=== PATIENT | female | born 1985 | race American Indian/Alaskan Native ===

== ENCOUNTER 2020-08-17 01:49 | Outpatient (CLI) | payer OTHER ==
[2020-08-17 02:15] VITALS: BP 118/71
== END 2020-08-17 03:19 | disposition home or self-care (01) ==
LOC: TRG 01:49 → APU 01:58 → TRG 03:19
PROVIDERS: ATTEND Obstetrics & Gynecology
DX: O09.893 Supervision of other high risk pregnancies, third trimester (principal); Z3A.40 40 weeks gestation of pregnancy
CPT/HCPCS: 59025

== ENCOUNTER 2020-08-18 02:48 | Inpatient (IN) | payer OTHER ==
--- NOTE | 2020-08-18 03:24 | History and Physical Report ---
History of Present Illness Date of examination: 08/18/20 History of present illness: Patient presents presents to labor and delivery with complaints of regular contractions. Her initial exam by triage nurse patient cervix 6 cm 90% -3. Patient's care complicated by body mass index greater than 40. Menstrual History Regularity: regular Menses every: 26-28 days Duration: 7 LMP: 11/07/2019 LMP reliability: definite LMP character: normal test type: urine test Planned ? no EDC Calculations LMP: 08/13/2020 EDC Confirmation: 08/13/2020 Past History : 2 Term Births: 0 Premature Births: 0 Living Children: 0 Para: 0 Mult. Births: 0 Prev : 0 Prev. attempt? 0 Aborta: 1 Elect. Ab: 1 Spont. Ab: 0 Ectopics: 0 # 1 Delivery date: 05/2019 Delivery type: EAB Past Medical History: Negative Past Medical History Past Surgical History: negative Past Medical History Anesthesia Complications: negative Anemia: negative Autoimmune Disorder: negative Bleeding Disorder: negative Blood Transfusions: negative Breast Disease: negative Diabetes: negative Heart Disease: negative Hypertension: negative Hepatitis/Liver Disease: negative Kidney Disease/UTI: negative Neurologic/Epilepsy/Migraines: negative Phlebitis/Varicosities: negative Psychiatric: negative Pulmonary Disease/Asthma: negative Thyroid Disease: negative Hospitalizations: negative Surgery (Non-heel cutter): negative Abnormal PAP: positive, >10 years ago Social Hx: Works at gym no ETOH/Drugs/Smoking no pets Infection History Hx of STD: HSV HIV Risk Eval: low risk Hepatitis B Risk Eval: low risk Personal hx. of genital herpes: yes Varicella/Chicken Pox Status: Immunized Genetic History ADVANCED MATERNAL AGE Congenital Heart Defect: Mom: no Dad: no Latosha Disease: Mom: no Dad: no Thalassemia Mom: no Dad: no Neural Tube Defect Mom: no Dad: no Down's Syndrome Mom: no Dad: no Placido-Sachs Mom: no Dad: no Sickle Cell Disease/Trait Mom: yes Dad: no Comments: sister + SCT Hemophilia Mom: no Dad: no Muscular Dystrophy Mom: no Dad: no Cystic Fibrosis Mom: no Dad: no Nicole Chorea Mom: no Dad: no Mental Retardation Mom: no Dad: no Fragile X Mom: no Dad: no Other Genetic/Chromosomal Disorder Mom: no Dad: no Child w/other defect Mom: no Dad: no Enviromental Exposures Xray Exposure: no Medication, drug, or alcohol use since LMP: no Chemical/Other Exposure: no Exposure to Cat Liter: no Hx of Parvovirus (Fifth Disease): no Occupational Exposure to Children: none Current Allergies (reviewed today): No known allergies Past History Past Medical History: other (See HPI for details) 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, other (See HPI for details) Family/Genetic History: other (See HPI for details) Social history: full code, other (See HPI for details) - Obstetrical History Expected Date of Delivery: 08/13/20 Actual Gestation: 40 Week(s) 5 Day(s) : 2 Para: 0 Hx # Term Pregnancies: 0 Number of Pregnancies: 0 Spontaneous Abortions: 0 Induced : 1 Number of Living Children: 0 Medications and Allergies Allergies Allergy/AdvReac Type Severity Reaction Status Date / Time No Known Allergies Allergy Unverified 08/17/20 02:25 Home Medications Medication Instructions Recorded Confirmed Last Taken Type No Known Home Medications [No 08/18/20 08/18/20 Unknown History Reported Home Medications] - Vital Signs Vital signs: Vital Signs Pulse Pulse Ox 119 H 99 08/18/20 02:55 08/18/20 02:55 Temp Pulse Resp BP Pulse Ox 98.2 F 115 H 18 120/58 99 08/18/20 02:59 08/18/20 03:20 08/18/20 02:59 08/18/20 03:00 08/18/20 03:20 - Physical Exam Breasts: Positive: deferred Cardiovascular: Regular rate Lungs: Positive: Normal air movement Abdomen: Positive: normal appearance, soft Genitourinary (Female): Positive: normal external genitalia. Negative: perineal/vulvar lesions Cervix: Positive: other (Per RN) Anus/Rectum: Positive: normal perianal skin - Obstetrical FHR: category 2 Results Result Diagrams: 08/18/20 03:55 All other labs normal. Assessment and Plan - Patient Problems (1) Active labor at term Current Visit: Yes Status: Acute Plan to address problem: We will admit to labor and delivery and follow labor protocol. (2) Morbid obesity Current Visit: Yes Status: Acute (3) Genital HSV Current Visit: Yes Status: Acute Qualifiers: Herpes simplex infection site: unspecified Qualified Code(s): A60.00 - Herpesviral infection of urogenital system, unspecified Plan to address problem: No lesions on exam
[2020-08-18] MEDS ORDERED: ACETAMINOPHEN 325 MG TAB PO PRN ×2 (03:26→17:40)
[2020-08-18] MEDS ORDERED: ePHEDrine SULFATE 50 MG/1 ML INJ IV PRN ×2 (03:26→05:21)
[2020-08-18] MEDS ORDERED: PROMETHAZINE 25 MG TAB PO PRN ×2 (03:26→17:40)
[2020-08-18] MEDS ORDERED: BUTORPHANOL 2 MG/1 ML INJ IV PRN (03:26)
[2020-08-18] MEDS ORDERED: TERBUTALINE 1 MG/1 ML INJ SUB-Q PRN (03:26)
[2020-08-18] MEDS ORDERED: LIDOCAINE (2%) 20 MG/1 ML VIAL 20 ML MDV INFILTRATI ONE (03:26)
[2020-08-18] MEDS ORDERED: OXYTOCIN DRIP 30 UNITS/500 ML BAG IV SCH (04:00)
[2020-08-18] MEDS: LACTATED RINGERS 1,000 ML IV SCH ×2 (04:09→06:07)
[2020-08-18 04:14] LABS: Hematocrit 37.8 % (30.3-42.9); Hemoglobin 13.7 gm/dl (10.1-14.3); Mean Corpuscular HGB Conc 36 % (30-34); Mean Corpuscular Volume 92 fl (79-97); Platelet Count 192 K/mm3 (140-440); Red Blood Count 4.09 M/mm3 (3.65-5.03); Red Cell Distribution Width 15.8 % (13.2-15.2)
[2020-08-18] MEDS ORDERED: NALOXONE 2 MG/2 ML INJ IV PRN (05:21)
--- NOTE | 2020-08-18 05:21 | Anesthesia Consultation ---
Anesthesia Consult and Med Hx Date of service: 08/18/20 - Airway Anesthetic Teeth Evaluation: Good ROM Head & Neck: Adequate Mental/Hyoid Distance: Adequate Mallampati Class: Class II Intubation Access Assessment: Probably Good - Pulmonary Exam CTA: Yes - Cardiac Exam Cardiac Exam: RRR - Pre-Operative Health Status ASA Pre-Surgery Classification: ASA3 Proposed Anesthetic Plan: Epidural - Pulmonary Hx Asthma: No COPD: No Hx Pneumonia: No - Cardiovascular System Hx Hypertension: No - Central Nervous System Hx Seizures: No Hx Psychiatric Problems: No - Endocrine Hx End Stage Renal Disease: No Hx Hypothyroidism: No - Hematic Hx Anemia: No Hx Sickle Cell Disease: No - Other Systems Hx Alcohol Use: Yes (1-2 times per week) Hx Obesity: Yes
--- NOTE | 2020-08-18 05:22 | Progress Note ---
Labor Epidural - Labor Epidural Start Time: 05:05 Stop Time: 05:21 Performed by:: GEOFFREY BUCKLEY Procedure: Patient is requesting epidural for labor pain. H&P, and labs reviewed. Procedure explained, questions answered, consent obtained. Patient in sitting position with blood pressure cuff and pulse ox on and working. Timeout performed immediately before start of procedure. Sterile chlorahexadine 0.5% prep/drape. 3 mL 1% lidocaine skin wheal at L3-L[4]. 18-gauge Tuohy epidural needle advanced to [id number] with saline at 9 cm. Epidural dexmedetomidine [30] mcg administered. Epidural catheter advanced to 15 cm, negative aspiration for blood and csf, negative test dose 3 ml 1.5% lidocaine with epinephrine. Sterile steri-strips and tegaderm applied, followed by tape reinforcement. Patient tolerated procedure well. Julissa MCDUFFIE
[2020-08-18] MEDS: fentaNYL-BUPIV 2 MCG/ML-0.125% 200 MCG/100 ML BAG EPIDURAL SCH ×2 (06:03→13:29)
--- NOTE | 2020-08-18 06:39 | Event Note ---
Date: 08/18/20 Patient now with epidural in place. With spontaneous rupture membranes with meconium fluid. Cervix is now 8 cm complete and -3. Category 2 tracing. We will continue to monitor closely with anticipated vaginal delivery soon. scalp electrode not placed at present due to history of HSV.
--- NOTE | 2020-08-18 08:27 | Progress Note ---
Assessment and Plan A: 35 y.o. @ 40.5 wks, active labor. Cervical exam: / per RN. P: Increase Pitocin per protocol. Anticipate . Subjective - Subjective Date of service: 08/18/20 Principal diagnosis: IUP @ 40.5 wks, active labor Objective - Vital Signs Vital Signs: Vital Signs - 12hr 08/18/20 08/18/20 08/18/20 02:55 02:59 03:00 Temperature 98.2 F Pulse Rate 119 H 107 H 103 H Respiratory 18 Rate Blood Pressure 120/58 Blood Pressure 120/58 [Right] O2 Sat by Pulse 99 97 96 Oximetry 08/18/20 08/18/20 08/18/20 03:05 03:10 03:15 Temperature Pulse Rate 116 H 102 H 104 H Respiratory Rate Blood Pressure Blood Pressure [Right] O2 Sat by Pulse 98 99 99 Oximetry 08/18/20 08/18/20 08/18/20 03:17 03:20 03:38 Temperature Pulse Rate 103 H 115 H 99 H Respiratory Rate Blood Pressure Blood Pressure [Right] O2 Sat by Pulse 92 99 96 Oximetry 08/18/20 08/18/20 08/18/20 03:43 03:48 03:53 Temperature Pulse Rate 104 H 109 H 98 H Respiratory Rate Blood Pressure Blood Pressure [Right] O2 Sat by Pulse 99 98 99 Oximetry 08/18/20 08/18/20 08/18/20 03:58 04:03 04:08 Temperature Pulse Rate 101 H 99 H 77 Respiratory Rate Blood Pressure Blood Pressure [Right] O2 Sat by Pulse 98 99 97 Oximetry 08/18/20 08/18/20 08/18/20 04:11 04:13 04:17 Temperature Pulse Rate 113 H 95 H Respiratory 18 Rate Blood Pressure Blood Pressure [Right] O2 Sat by Pulse 99 94 Oximetry 08/18/20 08/18/20 08/18/20 04:18 04:23 04:28 Temperature Pulse Rate 104 H 90 100 H Respiratory Rate Blood Pressure Blood Pressure [Right] O2 Sat by Pulse 99 83 L 94 Oximetry 08/18/20 08/18/20 08/18/20 04:33 04:34 04:38 Temperature Pulse Rate 109 H 98 H 101 H Respiratory Rate Blood Pressure Blood Pressure [Right] O2 Sat by Pulse 98 90 90 Oximetry 03/11/0308/18/20 08/18/20 04:40 04:43 04:46 Temperature Pulse Rate 102 H 102 H 100 H Respiratory Rate Blood Pressure Blood Pressure [Right] O2 Sat by Pulse 93 89 93 Oximetry 08/18/20 08/18/20 08/18/20 04:48 04:51 04:53 Temperature Pulse Rate 108 H 99 H 98 H Respiratory Rate Blood Pressure Blood Pressure [Right] O2 Sat by Pulse 99 94 95 Oximetry 08/18/20 08/18/20 08/18/20 04:58 05:01 05:03 Temperature Pulse Rate 112 H 109 H 117 H Respiratory Rate Blood Pressure 144/86 124/58 Blood Pressure [Right] O2 Sat by Pulse 100 99 Oximetry 08/18/20 08/18/20 08/18/20 05:05 05:07 05:08 Temperature Pulse Rate 111 H 125 H 109 H Respiratory Rate Blood Pressure 141/69 121/68 Blood Pressure [Right] O2 Sat by Pulse 98 Oximetry 08/18/20 08/18/20 08/18/20 05:09 05:11 05:13 Temperature Pulse Rate 117 H 117 H 113 H Respiratory Rate Blood Pressure 116/67 118/56 122/58 Blood Pressure [Right] O2 Sat by Pulse 99 Oximetry 08/18/20 08/18/20 08/18/20 05:15 05:17 05:18 Temperature Pulse Rate 113 H 121 H 119 H Respiratory Rate Blood Pressure 115/62 115/63 Blood Pressure [Right] O2 Sat by Pulse 96 Oximetry 08/18/20 08/18/20 08/18/20 05:19 05:21 05:23 Temperature Pulse Rate 120 H 118 H 116 H Respiratory Rate Blood Pressure 132/65 127/59 132/72 Blood Pressure [Right] O2 Sat by Pulse 99 Oximetry 08/18/20 08/18/20 08/18/20 05:28 05:29 05:31 Temperature Pulse Rate 114 H 103 H 104 H Respiratory Rate Blood Pressure 115/59 123/75 119/66 Blood Pressure [Right] O2 Sat by Pulse 97 Oximetry 08/18/20 08/18/20 08/18/20 05:33 05:35 05:38 Temperature Pulse Rate 105 H 101 H 97 H Respiratory Rate Blood Pressure 114/55 118/58 Blood Pressure [Right] O2 Sat by Pulse 99 97 Oximetry 08/18/20 08/18/2021 05:43 05:48 05:52 Temperature Pulse Rate 102 H 83 71 Respiratory Rate Blood Pressure 109/57 Blood Pressure [Right] O2 Sat by Pulse 98 98 Oximetry 08/18/20 08/18/20 08/18/20 05:53 05:58 06:03 Temperature Pulse Rate 86 106 H 103 H Respiratory Rate Blood Pressure Blood Pressure [Right] O2 Sat by Pulse 97 99 98 Oximetry 08/18/20 08/18/20 08/18/20 06:06 06:08 06:13 Temperature Pulse Rate 91 H 94 H 106 H Respiratory Rate Blood Pressure 102/56 Blood Pressure [Right] O2 Sat by Pulse 98 98 Oximetry 08/18/20 08/18/20 08/18/20 06:18 06:23 06:28 Temperature Pulse Rate 91 H 116 H 86 Respiratory Rate Blood Pressure Blood Pressure [Right] O2 Sat by Pulse 97 97 99 Oximetry 08/18/20 08/18/20 08/18/20 06:33 06:38 06:43 Temperature Pulse Rate 103 H 105 H 97 H Respiratory Rate Blood Pressure Blood Pressure [Right] O2 Sat by Pulse 96 97 97 Oximetry 08/18/20 08/18/20 08/18/20 06:48 06:51 06:53 Temperature Pulse Rate 92 H 96 H 98 H Respiratory Rate Blood Pressure 103/58 Blood Pressure [Right] O2 Sat by Pulse 96 94 Oximetry 08/18/20 08/18/20 08/18/20 06:58 07:03 07:06 Temperature Pulse Rate 89 107 H 94 H Respiratory Rate Blood Pressure 112/61 Blood Pressure [Right] O2 Sat by Pulse 95 98 Oximetry 08/18/20 08/18/20 08/18/20 07:08 07:12 07:13 Temperature 97.9 F Pulse Rate 100 H 91 H 88 Respiratory 18 Rate Blood Pressure Blood Pressure 112/61 [Right] O2 Sat by Pulse 96 97 98 Oximetry 08/18/20 08/18/20 08/18/20 07:18 07:21 07:23 Temperature Pulse Rate 95 H 86 86 Respiratory Rate Blood Pressure 106/61 Blood Pressure [Right] O2 Sat by Pulse 96 97 Oximetry 08/18/20 08/18/20 08/18/20 07:28 07:33 07:36 Temperature Pulse Rate 76 82 83 Respiratory Rate Blood Pressure 89/51 Blood Pressure [Right] O2 Sat by Pulse 97 97 Oximetry 08/18/20 08/18/20 08/18/20 07:38 07:43 07:48 Temperature Pulse Rate 87 80 78 Respiratory Rate Blood Pressure Blood Pressure [Right] O2 Sat by Pulse 97 98 97 Oximetry 08/18/20 08/18/20 08/18/20 07:51 07:53 07:58 Temperature Pulse Rate 81 78 80 Respiratory Rate Blood Pressure 99/54 Blood Pressure [Right] O2 Sat by Pulse 98 97 Oximetry 08/18/20 08/18/20 08/18/20 08:03 08:07 08:08 Temperature Pulse Rate 87 97 H 98 H Respiratory Rate Blood Pressure 99/55 Blood Pressure [Right] O2 Sat by Pulse 97 99 Oximetry 08/18/20 08/18/20 08/18/20 08:13 08:18 08:21 Temperature Pulse Rate 91 H 63 75 Respiratory Rate Blood Pressure 104/60 Blood Pressure [Right] O2 Sat by Pulse 99 99 Oximetry 08/18/20 08:23 Temperature Pulse Rate 74 Respiratory Rate Blood Pressure Blood Pressure [Right] O2 Sat by Pulse 99 Oximetry - Exam Uterine Contraction Monitor Mode: External Cervical Dilatation: 7 (Per RN ) Cervical Effacement Percentage: 70 station: -1 Uterine Contraction Pattern: Regular Uterine Tone Measurement Phase: Resting Uterine Contraction Intensity: Moderate - Labs Labs: Abnormal Labs 08/18/20 03:55 WBC 13.6 H MCH 34 H MCHC 36 H RDW 15.8 H Laboratory Results - last 24 hr 08/18/20 08/18/20 03:55 03:55 WBC 13.6 H RBC 4.09 Hgb 13.7 Hct 37.8 MCV 92 MCH 34 H MCHC 36 H RDW 15.8 H Plt Count 192 Blood Type B POSITIVE Antibody Screen Negative
--- NOTE | 2020-08-18 09:39 | Progress Note ---
Assessment and Plan Observe closed after IUPC placed, possible pitocin if no cervical change. Questions encouraged and answered, she voiced understanding - Patient Problems (1) Active labor at term Current Visit: Yes Status: Acute (2) Genital HSV Current Visit: Yes Status: Acute Qualifiers: Herpes simplex infection site: unspecified Qualified Code(s): A60.00 - Herpesviral infection of urogenital system, unspecified (3) Morbid obesity Current Visit: Yes Status: Acute Subjective - Subjective Date of service: 08/18/20 Principal diagnosis: IUP @ 40.5 wks, active labor Patient reports: movement normal, contractions, no new complaints Objective - Vital Signs Vital Signs: Vital Signs - 12hr 08/18/20 08/18/20 08/18/20 02:55 02:59 03:00 Temperature 98.2 F Pulse Rate 119 H 107 H 103 H Respiratory 18 Rate Blood Pressure 120/58 Blood Pressure 120/58 [Right] O2 Sat by Pulse 99 97 96 Oximetry 08/18/20 08/18/20 08/18/20 03:05 03:10 03:15 Temperature Pulse Rate 116 H 102 H 104 H Respiratory Rate Blood Pressure Blood Pressure [Right] O2 Sat by Pulse 98 99 99 Oximetry 08/18/20 08/18/20 08/18/20 03:17 03:20 03:38 Temperature Pulse Rate 103 H 115 H 99 H Respiratory Rate Blood Pressure Blood Pressure [Right] O2 Sat by Pulse 92 99 96 Oximetry 08/18/20 08/18/20 08/18/20 03:43 03:48 03:53 Temperature Pulse Rate 104 H 109 H 98 H Respiratory Rate Blood Pressure Blood Pressure [Right] O2 Sat by Pulse 99 98 99 Oximetry 08/18/20 08/18/20 08/18/20 03:58 04:03 04:08 Temperature Pulse Rate 101 H 99 H 77 Respiratory Rate Blood Pressure Blood Pressure [Right] O2 Sat by Pulse 98 99 97 Oximetry 08/18/20 08/18/20 08/18/20 04:11 04:13 04:17 Temperature Pulse Rate 113 H 95 H Respiratory 18 Rate Blood Pressure Blood Pressure [Right] O2 Sat by Pulse 99 94 Oximetry 08/18/20 08/18/20 08/18/20 04:18 04:23 04:28 Temperature Pulse Rate 104 H 90 100 H Respiratory Rate Blood Pressure Blood Pressure [Right] O2 Sat by Pulse 99 83 L 94 Oximetry 08/18/20 08/18/20 08/18/20 04:33 04:34 04:38 Temperature Pulse Rate 109 H 98 H 101 H Respiratory Rate Blood Pressure Blood Pressure [Right] O2 Sat by Pulse 98 90 90 Oximetry 08/18/20 08/18/20 08/18/20 04:40 04:43 04:46 Temperature Pulse Rate 102 H 102 H 100 H Respiratory Rate Blood Pressure Blood Pressure [Right] O2 Sat by Pulse 93 89 93 Oximetry 08/18/20 08/18/20 08/18/20 04:48 04:51 04:53 Temperature Pulse Rate 108 H 99 H 98 H Respiratory Rate Blood Pressure Blood Pressure [Right] O2 Sat by Pulse 99 94 95 Oximetry 08/18/20 08/18/20 08/18/20 04:58 05:01 05:03 Temperature Pulse Rate 112 H 109 H 117 H Respiratory Rate Blood Pressure 144/86 124/58 Blood Pressure [Right] O2 Sat by Pulse 100 99 Oximetry 08/18/20 08/18/20 08/18/20 05:05 05:07 05:08 Temperature Pulse Rate 111 H 125 H 109 H Respiratory Rate Blood Pressure 141/69 121/68 Blood Pressure [Right] O2 Sat by Pulse 98 Oximetry 08/18/20 08/18/20 08/18/20 05:09 05:11 05:13 Temperature Pulse Rate 117 H 117 H 113 H Respiratory Rate Blood Pressure 116/67 118/56 122/58 Blood Pressure [Right] O2 Sat by Pulse 99 Oximetry 08/18/20 08/18/20 08/18/20 05:15 05:17 05:18 Temperature Pulse Rate 113 H 121 H 119 H Respiratory Rate Blood Pressure 115/62 115/63 Blood Pressure [Right] O2 Sat by Pulse 96 Oximetry 08/18/20 08/18/20 08/18/20 05:19 05:21 05:23 Temperature Pulse Rate 120 H 118 H 116 H Respiratory Rate Blood Pressure 132/65 127/59 132/72 Blood Pressure [Right] O2 Sat by Pulse 99 Oximetry 08/18/20 08/18/20 08/18/20 05:28 05:29 05:31 Temperature Pulse Rate 114 H 103 H 104 H Respiratory Rate Blood Pressure 115/59 123/75 119/66 Blood Pressure [Right] O2 Sat by Pulse 97 Oximetry 08/18/20 08/18/20 08/18/20 05:33 05:35 05:38 Temperature Pulse Rate 105 H 101 H 97 H Respiratory Rate Blood Pressure 114/55 118/58 Blood Pressure [Right] O2 Sat by Pulse 99 97 Oximetry 08/18/20 08/18/20 08/18/20 05:43 05:48 05:52 Temperature Pulse Rate 102 H 83 71 Respiratory Rate Blood Pressure 109/57 Blood Pressure [Right] O2 Sat by Pulse 98 98 Oximetry 08/18/20 08/18/20 08/18/20 05:53 05:58 06:03 Temperature Pulse Rate 86 106 H 103 H Respiratory Rate Blood Pressure Blood Pressure [Right] O2 Sat by Pulse 97 99 98 Oximetry 08/18/20 08/18/20 08/18/20 06:06 06:08 06:13 Temperature Pulse Rate 91 H 94 H 106 H Respiratory Rate Blood Pressure 102/56 Blood Pressure [Right] O2 Sat by Pulse 98 98 Oximetry 08/18/20 08/18/20 08/18/20 06:18 06:23 06:28 Temperature Pulse Rate 91 H 116 H 86 Respiratory Rate Blood Pressure Blood Pressure [Right] O2 Sat by Pulse 97 97 99 Oximetry 08/18/20 08/18/20 08/18/20 06:33 06:38 06:43 Temperature Pulse Rate 103 H 105 H 97 H Respiratory Rate Blood Pressure Blood Pressure [Right] O2 Sat by Pulse 96 97 97 Oximetry 08/18/20 08/18/20 08/18/20 06:48 06:51 06:53 Temperature Pulse Rate 92 H 96 H 98 H Respiratory Rate Blood Pressure 103/58 Blood Pressure [Right] O2 Sat by Pulse 96 94 Oximetry 08/18/20 08/18/20 08/18/20 06:58 07:03 07:06 Temperature Pulse Rate 89 107 H 94 H Respiratory Rate Blood Pressure 112/61 Blood Pressure [Right] O2 Sat by Pulse 95 98 Oximetry 08/18/20 08/18/20 08/18/20 07:08 07:12 07:13 Temperature 97.9 F Pulse Rate 100 H 91 H 88 Respiratory 18 Rate Blood Pressure Blood Pressure 112/61 [Right] O2 Sat by Pulse 96 97 98 Oximetry 08/18/20 08/18/20 08/18/20 07:18 07:21 07:23 Temperature Pulse Rate 95 H 86 86 Respiratory Rate Blood Pressure 106/61 Blood Pressure [Right] O2 Sat by Pulse 96 97 Oximetry 08/18/20 08/18/20 08/18/20 07:28 07:33 07:36 Temperature Pulse Rate 76 82 83 Respiratory Rate Blood Pressure 89/51 Blood Pressure [Right] O2 Sat by Pulse 97 97 Oximetry 08/18/20 08/18/20 08/18/20 07:38 07:43 07:48 Temperature Pulse Rate 87 80 78 Respiratory Rate Blood Pressure Blood Pressure [Right] O2 Sat by Pulse 97 98 97 Oximetry 08/18/20 08/18/20 08/18/20 07:51 07:53 07:58 Temperature Pulse Rate 81 78 80 Respiratory Rate Blood Pressure 99/54 Blood Pressure [Right] O2 Sat by Pulse 98 97 Oximetry 08/18/20 08/18/20 08/18/20 08:03 08:07 08:08 Temperature Pulse Rate 87 97 H 98 H Respiratory Rate Blood Pressure 99/55 Blood Pressure [Right] O2 Sat by Pulse 97 99 Oximetry 08/18/20 08/18/20 08/18/20 08:13 08:18 08:21 Temperature Pulse Rate 91 H 63 75 Respiratory Rate Blood Pressure 104/60 Blood Pressure [Right] O2 Sat by Pulse 99 99 Oximetry 08/18/20 08/18/20 08/18/20 08:23 08:28 08:33 Temperature Pulse Rate 74 63 81 Respiratory Rate Blood Pressure Blood Pressure [Right] O2 Sat by Pulse 99 99 98 Oximetry 08/18/20 08/18/20 08/18/20 08:37 08:38 08:43 Temperature Pulse Rate 69 70 100 H Respiratory Rate Blood Pressure 115/62 Blood Pressure [Right] O2 Sat by Pulse 99 99 Oximetry 08/18/20 08/18/20 08/18/20 08:48 08:52 08:53 Temperature Pulse Rate 86 100 H 94 H Respiratory Rate Blood Pressure 114/69 Blood Pressure [Right] O2 Sat by Pulse 99 100 Oximetry 08/18/20 08/18/20 08/18/20 08:54 08:58 09:03 Temperature Pulse Rate 99 H 111 H Respiratory Rate Blood Pressure Blood Pressure [Right] O2 Sat by Pulse 81 L 98 98 Oximetry 08/18/20 08/18/20 08/18/20 09:06 09:08 09:13 Temperature Pulse Rate 96 H 100 H 98 H Respiratory Rate Blood Pressure 113/66 Blood Pressure [Right] O2 Sat by Pulse 99 98 Oximetry 08/18/20 08/18/20 08/18/20 09:18 09:21 09:23 Temperature Pulse Rate 90 97 H 80 Respiratory Rate Blood Pressure 108/58 Blood Pressure [Right] O2 Sat by Pulse 98 99 Oximetry 08/18/20 08/18/20 08/18/20 09:28 09:33 09:36 Temperature Pulse Rate 93 H 98 H 99 H Respiratory Rate Blood Pressure 101/60 Blood Pressure [Right] O2 Sat by Pulse 97 98 Oximetry - Exam Breasts: deferred Cardiovascular: Regular rate Lungs: Normal air movement Abdomen: Absent: tenderness Vulva: both: normal Uterus: Present: fundal height above umbilicus. Absent: tenderness FHR: category 2 (will at least place IUPC to better monitor UC's) Uterine Contraction Monitor Mode: External (pelvic exam deferred for IUPC ? ISE placement) Uterine Contraction Pattern: Irregular Extremities: normal - Labs Labs: Abnormal Labs 08/18/20 03:55 WBC 13.6 H MCH 34 H MCHC 36 H RDW 15.8 H Laboratory Results - last 24 hr 08/18/20 08/18/20 03:55 03:55 WBC 13.6 H RBC 4.09 Hgb 13.7 Hct 37.8 MCV 92 MCH 34 H MCHC 36 H RDW 15.8 H Plt Count 192 Blood Type B POSITIVE Antibody Screen Negative
--- NOTE | 2020-08-18 10:02 | Event Note ---
Date: 08/18/20 FHT's reviewed, discussed difficulty with accurately monitoring FHT's and UC's at this BMI. She denies active HSV lesions or prodromal symptoms. Recommend IUPC ? ISE placement. States her last outbreak was several months ago. Explained possible vaginal lesions and option for C/S vs continued LEANDER with IUPC and?ISE with small risk of transmission with placement of monitors whe voiced understanding and desires to proceed with LEANDER with IPUC and ISE
--- NOTE | 2020-08-18 10:12 | Event Note ---
Date: 08/18/20 (No lesions seen.) No active lesion seen on exam. Cervical exam . Pt also evaluated by Dr. Florentino. FSE and IUPC placed. Will revaluate labor in 2 hours.
--- NOTE | 2020-08-18 12:10 | Progress Note ---
Assessment and Plan A: 35 y.o. @ 40.5 wks, Cervical exam (essentially unchanged from previous exams). P: Pt being prepped for at this time. Consents signed. pre op medications placed. Subjective - Subjective Date of service: 08/18/20 Principal diagnosis: IUP @ 40.5 wks, active labor Patient reports: new complaints, movement normal, contractions Objective - Vital Signs Vital Signs: Vital Signs - 12hr 08/18/20 08/18/20 08/18/20 02:55 02:59 03:00 Temperature 98.2 F Pulse Rate 119 H 107 H 103 H Respiratory 18 Rate Blood Pressure 120/58 Blood Pressure 120/58 [Right] O2 Sat by Pulse 99 97 96 Oximetry 08/18/20 08/18/20 08/18/20 03:05 03:10 03:15 Temperature Pulse Rate 116 H 102 H 104 H Respiratory Rate Blood Pressure Blood Pressure [Right] O2 Sat by Pulse 98 99 99 Oximetry 08/18/20 08/18/20 08/18/20 03:17 03:20 03:38 Temperature Pulse Rate 103 H 115 H 99 H Respiratory Rate Blood Pressure Blood Pressure [Right] O2 Sat by Pulse 92 99 96 Oximetry 08/18/20 08/18/20 08/18/20 03:43 03:48 03:53 Temperature Pulse Rate 104 H 109 H 98 H Respiratory Rate Blood Pressure Blood Pressure [Right] O2 Sat by Pulse 99 98 99 Oximetry 08/18/20 08/18/20 08/18/20 03:58 04:03 04:08 Temperature Pulse Rate 101 H 99 H 77 Respiratory Rate Blood Pressure Blood Pressure [Right] O2 Sat by Pulse 98 99 97 Oximetry 08/18/20 08/18/20 08/18/20 04:11 04:13 04:17 Temperature Pulse Rate 113 H 95 H Respiratory 18 Rate Blood Pressure Blood Pressure [Right] O2 Sat by Pulse 99 94 Oximetry 08/18/20 08/18/20 08/18/20 04:18 04:23 04:28 Temperature Pulse Rate 104 H 90 100 H Respiratory Rate Blood Pressure Blood Pressure [Right] O2 Sat by Pulse 99 83 L 94 Oximetry 08/18/20 08/18/20 08/18/20 04:33 04:34 04:38 Temperature Pulse Rate 109 H 98 H 101 H Respiratory Rate Blood Pressure Blood Pressure [Right] O2 Sat by Pulse 98 90 90 Oximetry 08/18/20 08/18/20 08/18/20 04:40 04:43 04:46 Temperature Pulse Rate 102 H 102 H 100 H Respiratory Rate Blood Pressure Blood Pressure [Right] O2 Sat by Pulse 93 89 93 Oximetry 08/18/20 08/18/20 08/18/20 04:48 04:51 04:53 Temperature Pulse Rate 108 H 99 H 98 H Respiratory Rate Blood Pressure Blood Pressure [Right] O2 Sat by Pulse 99 94 95 Oximetry 08/18/20 08/18/20 08/18/20 04:58 05:01 05:03 Temperature Pulse Rate 112 H 109 H 117 H Respiratory Rate Blood Pressure 144/86 124/58 Blood Pressure [Right] O2 Sat by Pulse 100 99 Oximetry 08/18/20 08/18/20 08/18/20 05:05 05:07 05:08 Temperature Pulse Rate 111 H 125 H 109 H Respiratory Rate Blood Pressure 141/69 121/68 Blood Pressure [Right] O2 Sat by Pulse 98 Oximetry 08/18/20 08/18/20 08/18/20 05:09 05:11 05:13 Temperature Pulse Rate 117 H 117 H 113 H Respiratory Rate Blood Pressure 116/67 118/56 122/58 Blood Pressure [Right] O2 Sat by Pulse 99 Oximetry 08/18/20 08/18/20 08/18/20 05:15 05:17 05:18 Temperature Pulse Rate 113 H 121 H 119 H Respiratory Rate Blood Pressure 115/62 115/63 Blood Pressure [Right] O2 Sat by Pulse 96 Oximetry 08/18/20 08/18/20 08/18/20 05:19 05:21 05:23 Temperature Pulse Rate 120 H 118 H 116 H Respiratory Rate Blood Pressure 132/65 127/59 132/72 Blood Pressure [Right] O2 Sat by Pulse 99 Oximetry 08/18/20 08/18/20 08/18/20 05:28 05:29 05:31 Temperature Pulse Rate 114 H 103 H 104 H Respiratory Rate Blood Pressure 115/59 123/75 119/66 Blood Pressure [Right] O2 Sat by Pulse 97 Oximetry 08/18/20 08/18/20 08/18/20 05:33 05:35 05:38 Temperature Pulse Rate 105 H 101 H 97 H Respiratory Rate Blood Pressure 114/55 118/58 Blood Pressure [Right] O2 Sat by Pulse 99 97 Oximetry 08/18/20 08/18/20 08/18/20 05:43 05:48 05:52 Temperature Pulse Rate 102 H 83 71 Respiratory Rate Blood Pressure 109/57 Blood Pressure [Right] O2 Sat by Pulse 98 98 Oximetry 08/18/20 08/18/20 08/18/20 05:53 05:58 06:03 Temperature Pulse Rate 86 106 H 103 H Respiratory Rate Blood Pressure Blood Pressure [Right] O2 Sat by Pulse 97 99 98 Oximetry 08/18/20 08/18/20 08/18/20 06:06 06:08 06:13 Temperature Pulse Rate 91 H 94 H 106 H Respiratory Rate Blood Pressure 102/56 Blood Pressure [Right] O2 Sat by Pulse 98 98 Oximetry 08/18/20 08/18/20 08/18/20 06:18 06:23 06:28 Temperature Pulse Rate 91 H 116 H 86 Respiratory Rate Blood Pressure Blood Pressure [Right] O2 Sat by Pulse 97 97 99 Oximetry 08/18/20 08/18/20 08/18/20 06:33 06:38 06:43 Temperature Pulse Rate 103 H 105 H 97 H Respiratory Rate Blood Pressure Blood Pressure [Right] O2 Sat by Pulse 96 97 97 Oximetry 08/18/20 08/18/20 08/18/20 06:48 06:51 06:53 Temperature Pulse Rate 92 H 96 H 98 H Respiratory Rate Blood Pressure 103/58 Blood Pressure [Right] O2 Sat by Pulse 96 94 Oximetry 08/18/20 08/18/20 08/18/20 06:58 07:03 07:06 Temperature Pulse Rate 89 107 H 94 H Respiratory Rate Blood Pressure 112/61 Blood Pressure [Right] O2 Sat by Pulse 95 98 Oximetry 08/18/20 08/18/20 08/18/20 07:08 07:12 07:13 Temperature 97.9 F Pulse Rate 100 H 91 H 88 Respiratory 18 Rate Blood Pressure Blood Pressure 112/61 [Right] O2 Sat by Pulse 96 97 98 Oximetry 08/18/20 08/18/20 08/18/20 07:18 07:21 07:23 Temperature Pulse Rate 95 H 86 86 Respiratory Rate Blood Pressure 106/61 Blood Pressure [Right] O2 Sat by Pulse 96 97 Oximetry 08/18/20 08/18/20 08/18/20 07:28 07:33 07:36 Temperature Pulse Rate 76 82 83 Respiratory Rate Blood Pressure 89/51 Blood Pressure [Right] O2 Sat by Pulse 97 97 Oximetry 08/18/20 08/18/20 08/18/20 07:38 07:43 07:48 Temperature Pulse Rate 87 80 78 Respiratory Rate Blood Pressure Blood Pressure [Right] O2 Sat by Pulse 97 98 97 Oximetry 08/18/20 08/18/20 08/18/20 07:51 07:53 07:58 Temperature Pulse Rate 81 78 80 Respiratory Rate Blood Pressure 99/54 Blood Pressure [Right] O2 Sat by Pulse 98 97 Oximetry 08/18/20 08/18/20 08/18/20 08:03 08:07 08:08 Temperature Pulse Rate 87 97 H 98 H Respiratory Rate Blood Pressure 99/55 Blood Pressure [Right] O2 Sat by Pulse 97 99 Oximetry 08/18/20 08/18/20 08/18/20 08:13 08:18 08:21 Temperature Pulse Rate 91 H 63 75 Respiratory Rate Blood Pressure 104/60 Blood Pressure [Right] O2 Sat by Pulse 99 99 Oximetry 08/18/20 08/18/20 08/18/20 08:23 08:28 08:33 Temperature Pulse Rate 74 63 81 Respiratory Rate Blood Pressure Blood Pressure [Right] O2 Sat by Pulse 99 99 98 Oximetry 08/18/20 08/18/20 08/18/20 08:37 08:38 08:43 Temperature Pulse Rate 69 70 100 H Respiratory Rate Blood Pressure 115/62 Blood Pressure [Right] O2 Sat by Pulse 99 99 Oximetry 08/18/20 08/18/20 08/18/20 08:48 08:52 08:53 Temperature Pulse Rate 86 100 H 94 H Respiratory Rate Blood Pressure 114/69 Blood Pressure [Right] O2 Sat by Pulse 99 100 Oximetry 08/18/20 08/18/20 08/18/20 08:54 08:58 09:03 Temperature Pulse Rate 99 H 111 H Respiratory Rate Blood Pressure Blood Pressure [Right] O2 Sat by Pulse 81 L 98 98 Oximetry 08/18/20 08/18/20 08/18/20 09:06 09:08 09:13 Temperature Pulse Rate 96 H 100 H 98 H Respiratory Rate Blood Pressure 113/66 Blood Pressure [Right] O2 Sat by Pulse 99 98 Oximetry 08/18/20 08/18/20 08/18/20 09:18 09:21 09:23 Temperature Pulse Rate 90 97 H 80 Respiratory Rate Blood Pressure 108/58 Blood Pressure [Right] O2 Sat by Pulse 98 99 Oximetry 08/18/20 08/18/20 08/18/20 09:28 09:33 09:36 Temperature Pulse Rate 93 H 98 H 99 H Respiratory Rate Blood Pressure 101/60 Blood Pressure [Right] O2 Sat by Pulse 97 98 Oximetry 08/18/20 08/18/20 08/18/20 09:38 09:43 09:48 Temperature Pulse Rate 76 105 H 104 H Respiratory Rate Blood Pressure Blood Pressure [Right] O2 Sat by Pulse 98 100 100 Oximetry 08/18/20 08/18/20 08/18/20 09:52 09:53 09:58 Temperature Pulse Rate 93 H 99 H 99 H Respiratory Rate Blood Pressure 108/59 Blood Pressure [Right] O2 Sat by Pulse 100 100 Oximetry 08/18/20 08/18/20 08/18/20 10:03 10:06 10:08 Temperature Pulse Rate 100 H 96 H 92 H Respiratory Rate Blood Pressure 100/57 Blood Pressure [Right] O2 Sat by Pulse 100 99 Oximetry 08/18/20 08/18/20 08/18/20 10:13 10:18 10:21 Temperature Pulse Rate 90 89 96 H Respiratory Rate Blood Pressure 91/50 Blood Pressure [Right] O2 Sat by Pulse 100 99 Oximetry 08/18/20 08/18/20 08/18/20 10:23 10:28 10:33 Temperature Pulse Rate 97 H 99 H 89 Respiratory Rate Blood Pressure Blood Pressure [Right] O2 Sat by Pulse 99 100 99 Oximetry 08/18/20 08/18/20 08/18/20 10:37 10:38 10:43 Temperature Pulse Rate 100 H 98 H 91 H Respiratory Rate Blood Pressure 103/57 Blood Pressure [Right] O2 Sat by Pulse 100 100 Oximetry 08/18/20 08/18/20 08/18/20 10:48 10:52 10:53 Temperature Pulse Rate 105 H 92 H 89 Respiratory Rate Blood Pressure 110/58 Blood Pressure [Right] O2 Sat by Pulse 98 99 Oximetry 08/18/20 08/18/20 08/18/20 10:58 11:03 11:08 Temperature Pulse Rate 86 97 H 98 H Respiratory Rate Blood Pressure 103/58 Blood Pressure [Right] O2 Sat by Pulse 100 100 100 Oximetry 08/18/20 08/18/20 08/18/20 11:13 11:18 11:21 Temperature Pulse Rate 81 106 H 113 H Respiratory Rate Blood Pressure 102/55 Blood Pressure [Right] O2 Sat by Pulse 100 100 Oximetry 08/18/20 08/18/20 08/18/20 11:23 11:28 11:33 Temperature Pulse Rate 102 H 108 H 104 H Respiratory Rate Blood Pressure Blood Pressure [Right] O2 Sat by Pulse 100 100 99 Oximetry 08/18/20 08/18/20 08/18/20 11:36 11:38 11:43 Temperature Pulse Rate 107 H 104 H 104 H Respiratory Rate Blood Pressure 103/61 Blood Pressure [Right] O2 Sat by Pulse 99 100 Oximetry 08/18/20 08/18/20 08/18/20 11:48 11:51 11:53 Temperature Pulse Rate 106 H 112 H 105 H Respiratory Rate Blood Pressure 104/59 Blood Pressure [Right] O2 Sat by Pulse 99 99 Oximetry 08/18/20 08/18/20 08/18/20 11:58 12:03 12:07 Temperature Pulse Rate 118 H 110 H 108 H Respiratory Rate Blood Pressure 112/58 Blood Pressure [Right] O2 Sat by Pulse 100 100 Oximetry - Exam Narrative Exam: Not much change in cervical exam. 1 minute deceleration noted while in room examining patient. Pitocin was turned off and IV fluid bolus and O2 given. Explained to patient that there has been a real change in her cervix and unable to increase Pitocin d/t heart rate decelerations that there would be a need for a . Dr. Florentino updated on pt status. Abdomen: Present: normal appearance Vulva: both: normal FHR: category 2 ( heart rate deceleration for 1 minute with recovery to baseline. ) Cervical Dilatation: 8 Cervical Effacement Percentage: 90 station: 0 - Labs Labs: Abnormal Labs 08/18/20 03:55 WBC 13.6 H MCH 34 H MCHC 36 H RDW 15.8 H Laboratory Results - last 24 hr 08/18/20 08/18/20 03:55 03:55 WBC 13.6 H RBC 4.09 Hgb 13.7 Hct 37.8 MCV 92 MCH 34 H MCHC 36 H RDW 15.8 H Plt Count 192 Blood Type B POSITIVE Antibody Screen Negative
[2020-08-18] MEDS ORDERED: METOCLOPRAMIDE 10 MG/2 ML INJ IV ONE (12:21)
[2020-08-18] MEDS ORDERED: BICITRA ORAL LIQD 30ML PO ONE (12:21)
[2020-08-18] MEDS ORDERED: FAMOTIDINE 20 MG/2 ML INJ IV ONE (12:21)
[2020-08-18] MEDS ORDERED: miSOPROStol 200 MCG TAB ONE (14:20)
[2020-08-18] MEDS ORDERED: LIDOCAINE 2%/EPINEPHRINE 1:200,000 VIAL (20 ML) INFILTRATI ONE (14:28)
[2020-08-18] MEDS ORDERED: miSOPROStol 200 MCG TAB PR ONE (14:30)
--- NOTE | 2020-08-18 14:34 | Procedure Note ---
OB Delivery Note - Delivery Date of Delivery: 08/18/20 Osteology Teacher: MARINE CALERO Estimated blood loss: other (600ml) - Vaginal Delivery presentation: vertex Delivery position: OA Intrapartum events: meconium, mult.variable deceleratio Delivery induction: none Delivery augmentation: rupture of membranes, pitocin Delivery monitor: external FHT, external uterine, internal FHT, internal uterine Route of delivery: Delivery placenta: spontaneous, other (Meconium stained fluid) Delivery cord: nuchal cord, 3 umbilical vessels Episiotomy: none Delivery laceration: 1st degree (Hemostatic, no repair needed. ) Anesthesia: epidural Delivery comments: of viable female infant with nuchal X 1 loose, easily reduced. Infant to mothers abdomen for skin to skin. Cord cut, clamped, and infant handed to [facility] team for evaluation. Spontaneous delivery of meconium stained placenta, intact, complete, 3 vessels noted. Some brisk bleeding noted after delivery of placenta, stopped with Cytotec 800mcg rectal and Pitocin. Perineum and vaginal inspected, 1st degree noted, hemostatic, no repair needed. Sponges and instruments counted X2 and correct X 2. Infant and mother left in care of RN in stable condition. - A at 1 minute: 7 at 5 minutes: 9 Infant Gender: Female (Jacklyn Brownlee, 8-13)
[2020-08-18] MEDS ORDERED: CARBOPROST TROMETHAMINE 250 MCG/1 ML INJ IM PRN (17:40)
[2020-08-18] MEDS ORDERED: BENZOCAINE/MENTHOL 20/0.5% TOP SPRAY 56 GM TP PRN (17:40)
[2020-08-18] MEDS ORDERED: ONDANSETRON 4 MG/2 ML INJ IV PRN (17:40)
[2020-08-18] MEDS ORDERED: MAGNESIUM HYDROXIDE (MOM) ORAL LIQD UDC PO PRN (17:40)
[2020-08-18] MEDS ORDERED: METHYLERGONOVINE MALEATE 0.2 MG/ML VIAL IM PRN (17:40)
[2020-08-18] MEDS ORDERED: LANOLIN/ZINC/DIMETHICONE (LANSINOH) 7 GM TP PRN ×2 (17:40)
[2020-08-18] MEDS ORDERED: diphenhydrAMINE 25 MG CAP PO PRN (17:40)
[2020-08-18] MEDS ORDERED: PROMETHAZINE 25 MG RECT SUPP PR PRN (17:40)
[2020-08-18] MEDS ORDERED: WITCH HAZEL/ GLYCERIN PAD TP PRN (17:40)
[2020-08-18] MEDS ORDERED: IBUPROFEN 600 MG TAB PO SCH (18:00)
[2020-08-18] MEDS: IBUPROFEN 800 MG TAB PO SCH (18:28)
[2020-08-19] MEDS: IBUPROFEN 800 MG TAB PO SCH ×3 (02:01→18:15)
[2020-08-19] MEDS ORDERED: DIPHtheria,PERTUSSIS(ACELL),TETANUS VACCINE/PF 0.5 ML VIAL IM ONE (06:00)
[2020-08-19 06:19] LABS: Hematocrit 30.2 % (30.3-42.9); Hemoglobin 10.4 gm/dl (10.1-14.3)
[2020-08-19] MEDS: ACETAMINOPHEN 500 MG TAB PO PRN ×2 (10:23→20:09)
--- NOTE | 2020-08-19 13:35 | Discharge Summary ---
Providers - Providers Date of Admission: 08/18/20 03:27 Date of discharge: 08/19/20 Attending physician: CARLOS TALBOT Primary care physician: CARLOS TALBOT Hospitalization Reason for admission: Labor Condition: Good Pertinent studies: post delivery H&H 10.4/30.2 Procedures: Hospital course: uncomplicated and course. Disposition: - TO HOME OR SELFCARE - Discharge Diagnoses (1) Spontaneous vaginal delivery Status: Acute Core Measure Documentation - Palliative Care Palliative Care/ Comfort Measures: Not Applicable - Core Measures Any of the following diagnoses?: none Exam - Constitutional Vitals: Temp Pulse Resp BP Pulse Ox 98.6 F 74 18 115/80 98 08/19/20 12:31 08/19/20 12:31 08/19/20 12:31 08/19/20 12:31 08/19/20 12:31 General appearance: Present: no acute distress, well-nourished - EENT Eyes: Present: PERRL ENT: hearing intact, clear oral mucosa - Neck Neck: Present: supple, normal ROM - Respiratory Respiratory effort: normal Respiratory: bilateral: CTA - Cardiovascular Rhythm: regular - Extremities Extremities: No edema - Abdominal General gastrointestinal: Present: soft, non-tender, non-distended, normal bowel sounds Female genitourinary: Present: normal - Rectal Rectal Exam: deferred - Integumentary Integumentary: Present: clear, warm, dry - Musculoskeletal Musculoskeletal: gait normal, strength equal bilaterally - Psychiatric Psychiatric: appropriate mood/affect, intact judgment & insight - Neurologic Neurologic: CNII-XII intact, moves all extremities - Additional findings Additional findings: bottle feeding, lochia scant, fundus firm. Plan Activity: no restrictions Diet: regular Follow up with: CARLOS TALBOT MD [Primary Care Provider] - 09/19/20 (Congratulations! Please call [phone] to schedule your visit in 4 weeks. Call for any questions or concerns. )
--- NOTE | 2020-08-19 15:36 | Post Anesthesia Evaluation ---
- Post Anesthesia Evaluation Patient Participated: Yes Airway Patent: Yes Stable Respiratory Function: Yes Nausea/Vomiting: No Temp > 96.8F: Yes Pain Manageable: Yes Adequeate Hydration: Yes Anesthesia Complications: No Block Receding Appropriately: Yes
[2020-08-20] MEDS: IBUPROFEN 800 MG TAB PO SCH ×3 (06:17→12:00)
[2020-08-20 13:26] VITALS: BP 130/74
== END 2020-08-20 14:00 | disposition home or self-care (01) | DRG 774 ==
LOC: TRG 02:48 → APU 02:49 → LD 03:27 → TRG 03:27 → OB 16:38
PROVIDERS: ADMIT Obstetrics & Gynecology; ATTEND Obstetrics & Gynecology
PROC: 10E0XZZ Delivery of Products of Conception, External Approach (ICD-10-PCS; principal; 2020-08-18)
PROC: 3E0R3BZ Introduction of Anesthetic Agent into Spinal Canal, Percutaneous Approach (ICD-10-PCS; 2020-08-18)
PROC: 00HU33Z Insertion of Infusion Device into Spinal Canal, Percutaneous Approach (ICD-10-PCS; 2020-08-18)
PROC: 10H07YZ Insertion of Other Device into Products of Conception, Via Natural or Artificial Opening (ICD-10-PCS; 2020-08-18)
PROC: 3E0234Z Introduction of Serum, Toxoid and Vaccine into Muscle, Percutaneous Approach (ICD-10-PCS; 2020-08-19)
DX: O77.0 Labor and delivery complicated by meconium in amniotic fluid (principal); O98.32 Other infections with a predominantly sexual mode of transmission complicating childbirth; O76 Abnormality in fetal heart rate and rhythm complicating labor and delivery; O69.1XX0 Labor and delivery complicated by cord around neck, with compression, not applicable or unspecified; O99.214 Obesity complicating childbirth; E66.01 Morbid (severe) obesity due to excess calories; A60.00 Herpesviral infection of urogenital system, unspecified; O99.314 Alcohol use complicating childbirth; Z20.822 Contact with and (suspected) exposure to COVID-19; O70.0 First degree perineal laceration during delivery; Z3A.40 40 weeks gestation of pregnancy; Z37.0 Single live birth
CPT/HCPCS: 36415; 59025; 85014; 85018; 85027; 86850; 86900; 86901; 88305; 88307; G0378; J0595; J2590; J7120; U0003